=== PATIENT | female | born 1995 | race African-American/Black ===

== ENCOUNTER 2024-12-22 04:30 | Emergency (ER) | payer MEDICARE, MEDICAID ==
[~2024-12-22] VITALS: Ht 172.7 cm; Wt 91.0 kg
[2024-12-22 04:37] VITALS: O2SAT 98
[2024-12-22] MEDS: KETOROLAC 15MG/ML VIAL IM ONE (05:30)
[2024-12-22] MEDS: ACETAMINOPHEN 325MG TABLET PO ONE (07:48)
[2024-12-22] MEDS ORDERED: TOPUD PO (08:34)
[2024-12-22 08:48] VITALS: BP 102/77; PULSE 93; RESP 18; TEMP 37.1; O2SAT 100
== END 2024-12-22 07:54 | disposition home or self-care (01) ==
LOC: ER 04:30
DX: M79.631 Pain in right forearm (principal); M25.511 Pain in right shoulder
CPT/HCPCS: 99284; 81025; 73080; 73090; 96372; J1885; A4565